=== PATIENT | female | born 1945 | race Caucasian/White ===

== ENCOUNTER 2016-08-16 16:01 | Emergency (ER) | payer BC, MEDICARE ==
[~2016-08-16] VITALS: Ht 152.4 cm; Wt 77.3 kg
[~2016-08-16 16:01] MED LIST: ALEVE 220MG220 MG PO; ASPIRIN 81M81 MG/TA2 PO; CEFTIN500 MG PO; CENTRUM SILVER1 TA1 PO; CLOTRIM ANTIFUNGAL1% TP; DIOVAN 40MG40 MG PO; DIOVAN 80MG80 MG PO; FIBER CHOICE1 CTB PO; FLAX OIL1000 MG PO; FORTAMET500 M1 PO; FOSAMAX 70MG TA70 MG PO; HCTZ 25MG TAB25 MG PO; LEVEMIR FLEX100 U/ML SQ; LEVEMIR100 U/ML SC; LISINOPRIL5 MG PO; MACROBID 1100 MG/CAP PO; METFORMIN500 MG PO; MIRALAX119G PO; MS CONTIN 330 MG/TAB PO; NORCO 325 MG-51 TAB PO; NOVOLOG FLEX100 U/ML SC; NOVOLOG FLEX100 U/ML SQ; PROBIOTIC-MAJOR PO; ROXICODONE 55 MG/TAB PO; SIMVASTATIN40 MG PO; STOOL SOFTENER100 M2 PO; TRAVATAN Z 5 ML5 ML OS; TYLENOL 325MG325 MG PO; TYLENOL 500MG500 MG PO; TYLENOL W/COD1 UDTAB PO; VITAMIN D 1001000 IU PO; VITAMIN D31000 IU; ZOCOR 40MG40 MG PO; ZOFRAN 4MG T4 MG/TAB PO; ZOLOFT 50MG50 MG PO
[2016-08-16 16:14] VITALS: BP 110/68; TEMP 98.8
[2016-08-16 17:33] LABS: ADJUSTED CALCIUM 9.9 mg/dL (8.4-10.2); ALBUMIN 3.7 gm/dL (3.5-5.0); BILIRUBIN,TOTAL 0.8 mg/dL (0.0-1.0); C-REACTIVE PROTEIN 4.7 mg/dL (0.0-0.9); CALCIUM 9.7 mg/dL (8.4-10.2); CREATININE, serum 1.12 mg/dL (0.52-1.25); POTASSIUM 4.3 mmol/L (3.4-5.0); TOTAL PROTEIN 7.6 gm/dL (6.4-8.2)
[2016-08-16 17:40] LABS: PH 5 (5-8); SQUAMOUS EPITHELIAL 0-2 /hpf; URINE APPEARANCE Hazy; URINE BACTERIA Moderate /hpf; URINE BILIRUBIN Negative (NEGATIVE); URINE BLOOD 3+ (NEGATIVE); URINE COLOR Amber; URINE GLUCOSE 1+ (NEGATIVE); URINE KETONE Trace (NEGATIVE); URINE RBC >50 /hpf; URINE WBC 0-2 /hpf
[2016-08-16 18:18] LABS: BASO % 0.5 % (0.0-2.0); EOS % 0.5 % (0-4.0); GRAN # 5.6 (1.4-6.5); GRAN % 71.4 % (42.2-75.2); LYMPH # 1.5 (1.2-3.4); LYMPH % 18.4 % (20.0-51.0); MEAN CELL VOLUME 95 fl (80.0-100.0); MEAN CORPUSCULAR HGB CONC 32 g/dl (33.0-37.0); MEAN PLATELET VOLUME 9.4 fl (7.4-10.4); MONO # 0.7 (0.1-0.6); MONO % 8.7 % (1.7-9.3); PLATELET COUNT 238 K/mm3 (130-400); RED BLOOD COUNT 3.45 M/mm3 (4.10-5.30); REDCELL DISTRIBUTION WIDTH-CV 18.8 % (11.5-14.5); WHITE BLOOD COUNT 7.9 K/mm3 (4.8-10.8)
[2016-08-16 18:19] LABS: HEMATOCRIT 32.8 % (37.0-47.0); HEMOGLOBIN 10.6 g/dl (12.5-16.0); MEAN CORPUSCULAR HEMOGLOBIN 31 pg (27.0-31.0)
[2016-08-16 19:19] VITALS: PULSE 97
[2017-02-28] MEDS ORDERED: TYLENOL 325MG325 MG PO (08:24)
== END 2016-08-16 19:21 | disposition home or self-care (01) ==
LOC: COL.ER 16:01
PROVIDERS: Emergency Medicine
DX: R53.1 Weakness (principal); E11.9 Type 2 diabetes mellitus without complications; Z79.4 Long term (current) use of insulin; R32 Unspecified urinary incontinence; R15.9 Full incontinence of feces; R21 Rash and other nonspecific skin eruption; C21.0 Malignant neoplasm of anus, unspecified
CPT/HCPCS: J7030

== ENCOUNTER 2016-08-24 11:23 | Inpatient (IN) | payer BC, MEDICARE ==
[~2016-08-24] VITALS: Ht 152.4 cm; Wt 75.5 kg
[2016-08-24 12:12] LABS: BASO % 0.3 % (0.0-2.0); EOS % 0.2 % (0-4.0); GRAN # 10.8 (1.4-6.5); GRAN % 89.9 % (42.2-75.2); LYMPH # 0.5 (1.2-3.4); MEAN CELL VOLUME 94 fl (80.0-100.0); MEAN CORPUSCULAR HEMOGLOBIN 31 pg (27.0-31.0); MEAN CORPUSCULAR HGB CONC 33 g/dl (33.0-37.0); MEAN PLATELET VOLUME 9.2 fl (7.4-10.4); MONO # 0.6 (0.1-0.6); MONO % 5.2 % (1.7-9.3); PLATELET COUNT 259 K/mm3 (130-400); RED BLOOD COUNT 3.94 M/mm3 (4.10-5.30); REDCELL DISTRIBUTION WIDTH-CV 17.7 % (11.5-14.5)
[2016-08-24 12:14] LABS: HEMATOCRIT 36.9 % (37.0-47.0)
[2016-08-24 12:15] LABS: PH 5 (5-8); SQUAMOUS EPITHELIAL 0-2 /hpf; URINE APPEARANCE Hazy; URINE BACTERIA None Seen /hpf; URINE BILIRUBIN Negative (NEGATIVE); URINE BLOOD 2+ (NEGATIVE); URINE COLOR Amber; URINE GLUCOSE Negative (NEGATIVE); URINE KETONE Negative (NEGATIVE); URINE RBC 20-50 /hpf; URINE WBC 0-2 /hpf
[2016-08-24 12:20] LABS: INR 1.1 (0.8-3.0); PROTHROMBIN TIME 12.6 SECONDS (9.7-12.8)
[2016-08-24 12:29] LABS: ALANINE AMINOTRANSFERASE 33 U/L (9-52); ALBUMIN 3.9 gm/dL (3.5-5.0); ALKALINE PHOSPHATASE 94 U/L (50-136); ANION GAP 15 mmol/L (7-16); BILIRUBIN,TOTAL 0.7 mg/dL (0.0-1.0); BLOOD UREA NITROGEN 29 mg/dL (7-17); CALCIUM 9.9 mg/dL (8.4-10.2); CARBON DIOXIDE 25 mmol/L (22-30); CHLORIDE 96 mmol/L (98-107); CREATINE KINASE 149 U/L (30-135); GLUCOSE 117 mg/dL (74-106); POTASSIUM 4.7 mmol/L (3.4-5.0); SODIUM 137 mmol/L (137-145); TOTAL PROTEIN 7.8 gm/dL (6.4-8.2)
[2016-08-24 12:39] LABS: B-TYPE NATRIURETIC PEPTIDE 448 pg/mL (0-125)
[2016-08-24 12:41] LABS: TROPONIN-I < 0.012 ng/mL (0.000-0.034)
[2016-08-24] MEDS ORDERED: COLACE 100100 MG/CAP PO (13:22)
[2016-08-24 14:47] VITALS: BP 104/55; PULSE 101; TEMP 98.4
[2016-08-24 16:35] VITALS: BP 128/69; PULSE 98; TEMP 97.7
[2016-08-24 19:35] VITALS: BP 105/55; PULSE 96; TEMP 98.1
[2016-08-24 23:37] VITALS: BP 118/57; PULSE 96; TEMP 98.6
[2016-08-25 04:36] VITALS: BP 93/52; PULSE 89; TEMP 98.5
[2016-08-25 08:19] LABS: BASO % 0.4 % (0.0-2.0); EOS # 0.1 (0.0-0.7); EOS % 1.1 % (0-4.0); GRAN # 8.2 (1.4-6.5); GRAN % 79.2 % (42.2-75.2); LYMPH # 1.2 (1.2-3.4); LYMPH % 11.3 % (20.0-51.0); MEAN CELL VOLUME 95 fl (80.0-100.0); MEAN CORPUSCULAR HGB CONC 32 g/dl (33.0-37.0); MEAN PLATELET VOLUME 9.2 fl (7.4-10.4); MONO # 0.8 (0.1-0.6); MONO % 7.6 % (1.7-9.3); PLATELET COUNT 231 K/mm3 (130-400); REDCELL DISTRIBUTION WIDTH-CV 17.6 % (11.5-14.5); WHITE BLOOD COUNT 10.4 K/mm3 (4.8-10.8)
[2016-08-25 08:30] LABS: HEMATOCRIT 33.3 % (37.0-47.0); HEMOGLOBIN 10.7 g/dl (12.5-16.0); MEAN CORPUSCULAR HEMOGLOBIN 31 pg (27.0-31.0)
[2016-08-25 08:32] LABS: CALCIUM 8.7 mg/dL (8.4-10.2); CREATININE, serum 0.9 mg/dL (0.52-1.25); POTASSIUM 4.5 mmol/L (3.4-5.0)
[2016-08-25 09:02] VITALS: BP 127/69; PULSE 95; TEMP 97.5
[2016-08-25 12:14] VITALS: BP 149/66; PULSE 100; TEMP 98.1
[2016-08-25 14:52] LABS: AMPHETAMINE URINE NEGATIVE; BARBITURATES URINE NEGATIVE; BENZODIAZEPINES URINE NEGATIVE; BUPRENORPHINE URINE NEGATIVE; METHADONE URINE NEGATIVE; OPIATES URINE POSITIVE; OXYCODONE URINE POSITIVE; PHENCYCLIDINE URINE NEGATIVE; PROPOXYPHENE URINE NEGATIVE; THC CANNABINOIDS URINE NEGATIVE
[2016-08-25 16:30] VITALS: BP 120/88; PULSE 101; TEMP 99
[2016-08-25 19:49] VITALS: BP 118/49; PULSE 93; TEMP 98.2
[2016-08-25 23:43] VITALS: BP 91/42; PULSE 76; TEMP 98.1
[2016-08-26 03:48] VITALS: BP 132/70; PULSE 92; TEMP 97.7
[2016-08-26 07:35] VITALS: BP 122/61; PULSE 80; TEMP 98.8
[2016-08-26] MEDS ORDERED: SEROQUEL 2525 MG/TAB PO (09:16)
[2016-08-26] MEDS ORDERED: ANUSOL-HC2.5% TOP (09:18)
[2016-08-26] MEDS ORDERED: MS CONTIN 330 MG/TAB PO (09:18)
[2016-08-26] MEDS ORDERED: ROXICODONE 55 MG/TAB PO (09:18)
[2016-08-26 11:36] VITALS: BP 122/61; PULSE 80; TEMP 98.8
[2016-08-26 11:41] VITALS: BP 127/66; PULSE 107; TEMP 97.4
[2016-08-26] MEDS ORDERED: NOVOLOG FLEX100 U/ML SQ (13:57)
[2017-02-28] MEDS ORDERED: TYLENOL 325MG325 MG PO (08:24)
== END 2016-08-26 15:45 | DRG 683 ==
LOC: COL.ER 11:23 → MEDICAL 13:11
PROVIDERS: Emergency Medicine; Family Medicine
DX: N17.9 Acute kidney failure, unspecified (principal); E87.2 Acidosis; C21.8 Malignant neoplasm of overlapping sites of rectum, anus and anal canal; E86.0 Dehydration; E11.9 Type 2 diabetes mellitus without complications; E78.5 Hyperlipidemia, unspecified; R62.7 Adult failure to thrive; R53.81 Other malaise; Z79.4 Long term (current) use of insulin
CPT/HCPCS: 99222-AI; 99232-AI; 99239; J1650; J1815; J7030

== ENCOUNTER → 2016-09-03 | Outpatient (REF) ==
[~2016-09-03] MED LIST changes: +ANTIVERT 25MG25 MG PO; +ANUSOL-HC2.5% TOP; +BACTRIM DS 8001 TAB PO; +COLACE 100100 MG/CAP PO; +MIRALAX PA17 GM/Dose PO; +PROBIOTIC-SUNMARK PO; +SENOKOT S 50 MG1 TAB PO; +SEROQUEL 2525 MG/TAB PO; +SINEMET 25/101 UDTAB PO; +VALIUM 2MG T2 MG/TAB PO; +ZOFRAN8 MG PO; +ZOLOFT 100MG100 MG PO
== END ==
LOC: ZCOL.LAB 17:04
DX: E06.5 Other chronic thyroiditis (principal); D51.8 Other vitamin B12 deficiency anemias

== ENCOUNTER → 2016-09-12 | Outpatient (CLI) | payer BC, MEDICARE ==
[2016-09-12 16:24] LABS: BASO % 0.3 % (0.0-2.0); EOS # 0.1 (0.0-0.7); EOS % 0.9 % (0-4.0); GRAN # 7.4 (1.4-6.5); GRAN % 76.2 % (42.2-75.2); HEMATOCRIT 38.1 % (37.0-47.0); HEMOGLOBIN 12.4 g/dl (12.5-16.0); LYMPH # 1.6 (1.2-3.4); LYMPH % 16.2 % (20.0-51.0); MEAN CELL VOLUME 94 fl (80.0-100.0); MEAN CORPUSCULAR HEMOGLOBIN 31 pg (27.0-31.0); MEAN CORPUSCULAR HGB CONC 33 g/dl (33.0-37.0); MEAN PLATELET VOLUME 9.6 fl (7.4-10.4); MONO # 0.6 (0.1-0.6); MONO % 6.1 % (1.7-9.3); PLATELET COUNT 256 K/mm3 (130-400); RED BLOOD COUNT 4.05 M/mm3 (4.10-5.30); REDCELL DISTRIBUTION WIDTH-CV 15.9 % (11.5-14.5); WHITE BLOOD COUNT 9.7 K/mm3 (4.8-10.8)
[2016-09-12 16:25] LABS: ADJUSTED CALCIUM 9.9 mg/dL (8.4-10.2); ALBUMIN 3.5 gm/dL (3.5-5.0); BILIRUBIN,TOTAL 0.7 mg/dL (0.0-1.0); CALCIUM 9.5 mg/dL (8.4-10.2); CREATININE, serum 0.93 mg/dL (0.52-1.25); POTASSIUM 4.3 mmol/L (3.4-5.0); TOTAL PROTEIN 6.8 gm/dL (6.4-8.2)
== END ==
LOC: ZCOL.LAB 16:01
PROVIDERS: Family Medicine
DX: E11.9 Type 2 diabetes mellitus without complications (principal); C21.1 Malignant neoplasm of anal canal

== ENCOUNTER → 2016-09-21 | Outpatient (CLI) | payer BC, MEDICARE | LOC: ZCOL.LAB 18:30 | DX: E11.9 Type 2 diabetes mellitus without complications (principal) ==

== ENCOUNTER 2016-10-24 06:43 | Inpatient (IN) | payer BC, MEDICARE ==
[~2016-10-24] VITALS: Ht 152.4 cm; Wt 75.4 kg
[2016-10-24] VITALS (392 sets, daily range): BP systolic 112–124; BP diastolic 59–82; PULSE 82–99; TEMP 97.8–98.7; O2SAT 56–100
[~2016-10-24 06:43] MED LIST changes: -ANTIVERT 25MG25 MG PO; -BACTRIM DS 8001 TAB PO; -MIRALAX PA17 GM/Dose PO; -PROBIOTIC-SUNMARK PO; -SENOKOT S 50 MG1 TAB PO; -SINEMET 25/101 UDTAB PO; -VALIUM 2MG T2 MG/TAB PO; -ZOFRAN8 MG PO; -ZOLOFT 100MG100 MG PO
[2016-10-24 07:10] LABS: ARTERIAL BLD GAS O2 SATURATION 96.8 % (92-100); ARTERIAL BLD GAS TCO2 CT 29.9; ARTERIAL BLOOD GAS BASE EXCESS 3.3 (-2-2); ARTERIAL BLOOD GAS HCO3 28.4 meq/L (22-26); ARTERIAL BLOOD GAS PHT 7.41 C (7.35-7.45); ARTERIAL BLOOD GAS PO2 95.6 mmHg (80-100); ARTERIAL BLOOD GAS PO2T 95.6 (80-100); ARTERIAL BLOOD GAS pH 7.41 (7.35-7.45); OXYHEMOGLOBIN 95.9 %
[2016-10-24 07:11] LABS: ALLEN TEST YES; ATS? YES
[2016-10-24 07:12] LABS: ALLENS TEST RESULT PASS
[2016-10-24 07:22] LABS: BASO % 0.3 % (0.0-2.0); GRAN # 9.4 (1.4-6.5); GRAN % 85.7 % (42.2-75.2); LYMPH # 0.9 (1.2-3.4); MEAN CELL VOLUME 93 fl (80.0-100.0); MEAN CORPUSCULAR HGB CONC 32 g/dl (33.0-37.0); MEAN PLATELET VOLUME 10.1 fl (7.4-10.4); MONO # 0.6 (0.1-0.6); MONO % 5.5 % (1.7-9.3); PLATELET COUNT 155 K/mm3 (130-400); RED BLOOD COUNT 3.78 M/mm3 (4.10-5.30)
[2016-10-24 07:44] LABS: HEMOGLOBIN 11.3 g/dl (12.5-16.0); MEAN CORPUSCULAR HEMOGLOBIN 30 pg (27.0-31.0)
[2016-10-24] MEDS ORDERED: ZOLOFT 100MG100 MG PO (07:52)
[2016-10-24] MEDS ORDERED: MIRALAX PA17 GM/Dose PO (07:54)
[2016-10-24 07:55] LABS: PH 5 (5-8); SQUAMOUS EPITHELIAL 0-2 /hpf; URINE APPEARANCE Cloudy; URINE BACTERIA Many /hpf; URINE BILIRUBIN Negative (NEGATIVE); URINE BLOOD 3+ (NEGATIVE); URINE COLOR Yellow; URINE GLUCOSE Negative (NEGATIVE); URINE KETONE Trace (NEGATIVE); URINE RBC >50 /hpf; URINE UROBILINOGEN Negative (NEGATIVE); URINE WBC >50 /hpf
[2016-10-24] MEDS ORDERED: PROBIOTIC-SUNMARK PO (07:55)
[2016-10-24] MEDS ORDERED: LEVEMIR FLEX100 U/ML SQ (07:57)
[2016-10-24] MEDS ORDERED: SINEMET 25/101 UDTAB PO (07:58)
[2016-10-24] MEDS ORDERED: SEROQUEL 2525 MG/TAB PO (07:58)
[2016-10-24] MEDS ORDERED: FOSAMAX 70MG TA70 MG PO (08:02)
[2016-10-24] MEDS ORDERED: SENOKOT S 50 MG1 TAB PO (08:03)
[2016-10-24] MEDS ORDERED: ROXICODONE 55 MG/TAB PO (08:04)
[2016-10-24 08:05] LABS: BILIRUBIN,TOTAL 0.8 mg/dL (0.0-1.0); CALCIUM 9.2 mg/dL (8.4-10.2); CREATININE, serum 1.28 mg/dL (0.52-1.25); POTASSIUM 4.1 mmol/L (3.4-5.0); TOTAL PROTEIN 5.8 gm/dL (6.4-8.2)
[2016-10-24 08:49] LABS: C-REACTIVE PROTEIN 13.8 mg/dL (0.0-0.9)
[2016-10-25] VITALS (219 sets, daily range): BP systolic 104–122; BP diastolic 58–77; PULSE 74–88; TEMP 97.2–98.2; O2SAT 84–100
[2016-10-25 06:18] LABS: BASO % 0.4 % (0.0-2.0); EOS # 0.1 (0.0-0.7); EOS % 1.5 % (0-4.0); GRAN # 5.1 (1.4-6.5); GRAN % 74.2 % (42.2-75.2); LYMPH # 1.2 (1.2-3.4); LYMPH % 16.9 % (20.0-51.0); MEAN CELL VOLUME 94 fl (80.0-100.0); MEAN CORPUSCULAR HGB CONC 32 g/dl (33.0-37.0); MEAN PLATELET VOLUME 10.1 fl (7.4-10.4); MONO # 0.5 (0.1-0.6); MONO % 6.7 % (1.7-9.3); PLATELET COUNT 152 K/mm3 (130-400); REDCELL DISTRIBUTION WIDTH-CV 14.1 % (11.5-14.5); WHITE BLOOD COUNT 6.8 K/mm3 (4.8-10.8)
[2016-10-25 06:27] LABS: CALCIUM 8.8 mg/dL (8.4-10.2); CREATININE, serum 0.82 mg/dL (0.52-1.25); POTASSIUM 3.5 mmol/L (3.4-5.0)
[2016-10-25 06:38] LABS: HEMATOCRIT 36.6 % (37.0-47.0); HEMOGLOBIN 11.7 g/dl (12.5-16.0); MEAN CORPUSCULAR HEMOGLOBIN 30 pg (27.0-31.0)
[2016-10-26 00:30] VITALS: BP 111/68; PULSE 95; TEMP 97.7
[2016-10-26 04:56] VITALS: BP 138/69; PULSE 82; TEMP 98.2
[2016-10-26 07:48] VITALS: BP 134/67; PULSE 88; TEMP 98
[2016-10-26 10:54] LABS: ADJUSTED CALCIUM 9.7 mg/dL (8.4-10.2); ALBUMIN 3.1 gm/dL (3.5-5.0); BILIRUBIN,TOTAL 0.5 mg/dL (0.0-1.0); CREATININE, serum 0.73 mg/dL (0.52-1.25); POTASSIUM 3.4 mmol/L (3.4-5.0); TOTAL PROTEIN 6.1 gm/dL (6.4-8.2)
[2016-10-26 11:51] VITALS: BP 136/74; PULSE 86; TEMP 98.7
[2016-10-26] MEDS ORDERED: BACTRIM DS 8001 TAB PO (12:06)
[2017-02-28] MEDS ORDERED: TYLENOL 325MG325 MG PO (08:24)
== END 2016-10-26 12:51 | disposition home or self-care (01) | DRG 918 ==
LOC: COL.ER 06:43 → ICU 08:21 → MEDICAL 10-25 12:10
PROVIDERS: Family Medicine; Internal Medicine
DX: T40.2X1A Poisoning by other opioids, accidental (unintentional), initial encounter (principal); C21.8 Malignant neoplasm of overlapping sites of rectum, anus and anal canal; N39.0 Urinary tract infection, site not specified; E44.0 Moderate protein-calorie malnutrition; R41.0 Disorientation, unspecified; B96.20 Unspecified Escherichia coli [E. coli] as the cause of diseases classified elsewhere; E11.9 Type 2 diabetes mellitus without complications; Z79.4 Long term (current) use of insulin
CPT/HCPCS: 99232-AI; 99239; J0696; J1815; J7030

== ENCOUNTER 2017-01-27 18:55 | Emergency (ER) | payer BC, MEDICARE ==
[~2017-01-27] VITALS: Ht 152.4 cm; Wt 75.5 kg
[~2017-01-27 18:55] MED LIST changes: +BACTRIM DS 8001 TAB PO; +MIRALAX PA17 GM/Dose PO; +PROBIOTIC-SUNMARK PO; +SENOKOT S 50 MG1 TAB PO; +SINEMET 25/101 UDTAB PO; +ZOLOFT 100MG100 MG PO
[2017-01-27 19:08] VITALS: BP 171/77; TEMP 98
[2017-01-27] MEDS ORDERED: ANTIVERT 25MG25 MG PO (20:46)
[2017-01-27] MEDS ORDERED: VALIUM 2MG T2 MG/TAB PO (20:46)
[2017-01-27 20:58] LABS: HEMATOCRIT 36.2 % (37.0-47.0); HEMOGLOBIN 11.8 g/dl (12.5-16.0)
[2017-01-27 21:14] LABS: ANION GAP 10 mmol/L (7-16); BLOOD UREA NITROGEN 26 mg/dL (7-17); CALCIUM 9.7 mg/dL (8.4-10.2); CARBON DIOXIDE 28 mmol/L (22-30); CHLORIDE 98 mmol/L (98-107); CREATININE, serum 0.89 mg/dL (0.52-1.25); GLUCOSE 202 mg/dL (74-106); POTASSIUM 4.3 mmol/L (3.4-5.0); SODIUM 137 mmol/L (137-145)
[2017-01-27 21:25] LABS: TROPONIN-I < 0.012 ng/mL (0.000-0.034)
[2017-01-27] MEDS ORDERED: ZOFRAN8 MG PO (22:03)
[2017-01-27 22:05] VITALS: PULSE 92
[2017-02-28] MEDS ORDERED: TYLENOL 325MG325 MG PO (08:24)
== END 2017-01-27 22:05 | disposition home or self-care (01) ==
LOC: COL.ER 18:55
PROVIDERS: Emergency Medicine
DX: H81.399 Other peripheral vertigo, unspecified ear (principal); E11.9 Type 2 diabetes mellitus without complications; Z79.4 Long term (current) use of insulin; I10 Essential (primary) hypertension

== ENCOUNTER 2017-03-03 09:04 | Outpatient (CLI) | payer BC, MEDICARE ==
[~2017-03-03] VITALS: Ht 152.4 cm; Wt 72.7 kg
[2017-03-03] VITALS (13 sets, daily range): BP systolic 106–147; BP diastolic 47–97; PULSE 80–85
[~2017-03-03 09:04] MED LIST changes: +ANTIVERT 25MG25 MG PO; +VALIUM 2MG T2 MG/TAB PO; +ZOFRAN8 MG PO
== END 2017-03-03 15:47 | disposition home or self-care (01) ==
LOC: COL.RAD 09:04
DX: R91.8 Other nonspecific abnormal finding of lung field (principal); Z85.048 Personal history of other malignant neoplasm of rectum, rectosigmoid junction, and anus; I10 Essential (primary) hypertension
CPT/HCPCS: 27584

== ENCOUNTER 2017-04-26 12:30 | Emergency (ER) | payer BC, MEDICARE ==
[~2017-04-26] VITALS: Ht 152.4 cm; Wt 72.7 kg
[2017-04-26 12:39] VITALS: TEMP 98.4
[2017-04-26] MEDS ORDERED: ZOLOFT 100MG100 MG PO (13:03)
[2017-04-26 14:53] VITALS: BP 155/72; PULSE 82
== END 2017-04-26 14:53 | disposition home or self-care (01) ==
LOC: COL.ER 12:30
DX: S20.211A Contusion of right front wall of thorax, initial encounter (principal); S70.11XA Contusion of right thigh, initial encounter; W01.10XA Fall on same level from slipping, tripping and stumbling with subsequent striking against unspecified object, initial encounter; C34.92 Malignant neoplasm of unspecified part of left bronchus or lung; Z92.3 Personal history of irradiation; Z79.4 Long term (current) use of insulin

== ENCOUNTER 2018-01-23 09:30 | Emergency (ER) | payer MEDICARE ==
[~2018-01-23] VITALS: Ht 152.4 cm; Wt 75.0 kg
[~2018-01-23 09:30] MED LIST changes: +OMNICEF 300MG300 MG PO
[2018-01-23 09:33] VITALS: TEMP 98.1
[2018-01-23 10:08] LABS: BASO % 0.8 % (0.0-2.0); EOS # 0.2 (0.0-0.7); EOS % 3.4 % (0-4.0); GRAN # 3.2 (1.4-6.5); HEMATOCRIT 38.1 % (37.0-47.0); HEMOGLOBIN 12.3 g/dl (12.5-16.0); LYMPH % 20.5 % (20.0-51.0); MEAN CELL VOLUME 93 fl (80.0-100.0); MEAN CORPUSCULAR HEMOGLOBIN 30 pg (27.0-31.0); MEAN CORPUSCULAR HGB CONC 32 g/dl (33.0-37.0); MONO # 0.4 (0.1-0.6); MONO % 7.5 % (1.7-9.3); PLATELET COUNT 178 K/mm3 (130-400); RED BLOOD COUNT 4.12 M/mm3 (4.10-5.30); REDCELL DISTRIBUTION WIDTH-CV 13.4 % (11.5-14.5)
[2018-01-23] MEDS ORDERED: ZOCOR 40MG40 MG PO (10:16)
[2018-01-23] MEDS ORDERED: ZOLOFT 100MG100 MG PO (10:17)
[2018-01-23] MEDS ORDERED: PARCOPA 25/101 UDTAB PO (10:17)
[2018-01-23 10:19] LABS: ALANINE AMINOTRANSFERASE 12 U/L (9-52); ALBUMIN 3.9 gm/dL (3.5-5.0); ALKALINE PHOSPHATASE 87 U/L (50-136); ANION GAP 9 mmol/L (7-16); AST,SGOT 20 U/L (15-37); BILIRUBIN,TOTAL 0.4 mg/dL (0.0-1.0); BLOOD UREA NITROGEN 23 mg/dL (7-17); CARBON DIOXIDE 26 mmol/L (22-30); CHLORIDE 100 mmol/L (98-107); GLUCOSE 281 mg/dL (74-106); LIPASE 41 U/L (23-300); POTASSIUM 4.3 mmol/L (3.4-5.0); SODIUM 135 mmol/L (137-145); TOTAL PROTEIN 7.4 gm/dL (6.4-8.2)
[2018-01-23 10:30] LABS: TROPONIN-I < 0.012 ng/mL (0.000-0.034)
[2018-01-23 10:58] LABS: COLLECTION METHOD CLEAN CATCH
[2018-01-23 11:05] LABS: MUCOUS Present /lpf; PH 5 (5-8); URINE APPEARANCE Clear; URINE BACTERIA None Seen /hpf; URINE BILIRUBIN Negative (NEGATIVE); URINE BLOOD Negative (NEGATIVE); URINE COLOR Yellow; URINE GLUCOSE 3+ (NEGATIVE); URINE KETONE Negative (NEGATIVE); URINE LEUKOCYTE ESTERASE Negative (NEGATIVE); URINE NITRATE Negative (NEGATIVE); URINE PROTEIN(semi-quant) 1+ (NEGATIVE); URINE RBC 0-2 /hpf; URINE UROBILINOGEN Negative (NEGATIVE)
[2018-01-23 13:21] VITALS: BP 127/70; PULSE 86
== END 2018-01-23 13:22 | disposition home or self-care (01) ==
LOC: COL.ER 09:30
PROVIDERS: Emergency Medicine
DX: S09.90XA Unspecified injury of head, initial encounter (principal); S20.211A Contusion of right front wall of thorax, initial encounter; E86.0 Dehydration; G20 Parkinson's disease; E11.9 Type 2 diabetes mellitus without complications; W18.09XA Striking against other object with subsequent fall, initial encounter; Y92.410 Unspecified street and highway as the place of occurrence of the external cause
CPT/HCPCS: J7030; J7040; Q9967

== ENCOUNTER → 2018-03-19 | Outpatient (CLI) | payer MEDICARE ==
[~2018-03-19] MED LIST changes: +PARCOPA 25/101 UDTAB PO
== END ==
LOC: COL.RAD 11:02
DX: D01.3 Carcinoma in situ of anus and anal canal (principal); S22.060A Wedge compression fracture of T7-T8 vertebra, initial encounter for closed fracture; S32.10XA Unspecified fracture of sacrum, initial encounter for closed fracture; S32.2XXA Fracture of coccyx, initial encounter for closed fracture

== ENCOUNTER 2018-04-05 21:46 | Emergency (ER) | payer MEDICARE ==
[~2018-04-05] VITALS: Ht 152.4 cm; Wt 77.3 kg
[2018-04-05] MEDS ORDERED: INSLANT SQ (22:16)
[2018-04-05 23:37] VITALS: BP 130/72; PULSE 95; TEMP 99
== END 2018-04-05 23:37 | disposition home or self-care (01) ==
LOC: COL.ER 21:46
DX: S43.402A Unspecified sprain of left shoulder joint, initial encounter (principal); E78.00 Pure hypercholesterolemia, unspecified; G20 Parkinson's disease; Z79.4 Long term (current) use of insulin; W19.XXXA Unspecified fall, initial encounter

== ENCOUNTER 2018-07-10 08:07 | Day surgery (SDC) | payer MEDICARE, OTHER ==
[~2018-07-10] VITALS: Ht 152.4 cm; Wt 87.2 kg
[~2018-07-10 08:07] MED LIST changes: +INSLANT SQ
[2018-07-10 08:57] VITALS: BP 96/75; PULSE 76; TEMP 97.7
[2018-07-10] MEDS ORDERED: ACTOS30 MG PO (09:09)
[2018-07-10] MEDS ORDERED: SINEMET 25/101 UDTAB PO (09:10)
[2018-07-10] MEDS ORDERED: ZOCOR 40MG40 MG PO (09:11)
[2018-07-10] MEDS ORDERED: TYLENOL 500MG500 MG PO (09:11)
[2018-07-10] MEDS ORDERED: VITAMIND3 5000 PO (09:13)
[2018-07-10] MEDS ORDERED: QUESTRAN LI4 GM/5 GM PO (10:29)
[2018-07-10 10:30] VITALS: BP 119/66; PULSE 90; TEMP 98.2
[2018-07-10 10:45] VITALS: BP 162/88; PULSE 87
== END 2018-07-10 11:42 | disposition home or self-care (01) ==
LOC: SDCO 08:07
DX: Z86.010 Personal history of colon polyps (principal); D12.0 Benign neoplasm of cecum; D12.4 Benign neoplasm of descending colon; D12.3 Benign neoplasm of transverse colon; Z85.048 Personal history of other malignant neoplasm of rectum, rectosigmoid junction, and anus; Z85.118 Personal history of other malignant neoplasm of bronchus and lung; Z92.3 Personal history of irradiation; Z92.21 Personal history of antineoplastic chemotherapy; E11.9 Type 2 diabetes mellitus without complications; Z79.4 Long term (current) use of insulin; E78.5 Hyperlipidemia, unspecified; G20 Parkinson's disease; Z79.899 Other long term (current) drug therapy
CPT/HCPCS: J2250; J3010; J7030

== ENCOUNTER → 2019-02-27 | Outpatient (CLI) | payer MEDICARE ==
[~2019-02-27] VITALS: Ht 151.1 cm; Wt 94.1 kg
[~2019-02-27] MED LIST changes: +ACTOS30 MG PO; +QUESTRAN LI4 GM/5 GM PO; +VITAMIND3 5000 PO
[2019-02-27 10:36] VITALS: BP 92/56; PULSE 80
[2019-03-04 10:39] VITALS: BP 110/64; PULSE 80
== END ==
LOC: LIGHT 09:54
DX: E88.81 Metabolic syndrome and other insulin resistance (principal); E10.9 Type 1 diabetes mellitus without complications; I10 Essential (primary) hypertension; E66.01 Morbid (severe) obesity due to excess calories; Z68.41 Body mass index [BMI] 40.0-44.9, adult; Z71.3 Dietary counseling and surveillance
CPT/HCPCS: G0463

== ENCOUNTER → 2019-03-07 | Outpatient (CLI) | payer MEDICARE | LOC: MC.RAD 09:07 | DX: Z12.31 Encounter for screening mammogram for malignant neoplasm of breast (principal) ==

== ENCOUNTER → 2019-03-13 | Outpatient (CLI) | payer MEDICARE | LOC: LIGHT 10:54 | DX: E88.81 Metabolic syndrome and other insulin resistance (principal); E10.9 Type 1 diabetes mellitus without complications; I10 Essential (primary) hypertension; E66.01 Morbid (severe) obesity due to excess calories; Z68.41 Body mass index [BMI] 40.0-44.9, adult; Z71.3 Dietary counseling and surveillance ==

== ENCOUNTER → 2019-03-26 | Outpatient (CLI) | payer MEDICARE ==
[~2019-03-26] VITALS: Ht 151.1 cm; Wt 93.0 kg
[2019-03-26 14:37] VITALS: BP 106/60; PULSE 84
== END ==
LOC: LIGHT 13:20
DX: E88.81 Metabolic syndrome and other insulin resistance (principal); E11.9 Type 2 diabetes mellitus without complications; E66.01 Morbid (severe) obesity due to excess calories; Z68.41 Body mass index [BMI] 40.0-44.9, adult; Z71.3 Dietary counseling and surveillance
CPT/HCPCS: G0463

== ENCOUNTER → 2019-04-01 | Outpatient (CLI) | payer MEDICARE ==
[~2019-04-01] VITALS: Ht 151.1 cm; Wt 92.5 kg
== END ==
LOC: LIGHT 13:20
DX: E88.81 Metabolic syndrome and other insulin resistance (principal); E11.69 Type 2 diabetes mellitus with other specified complication; E78.5 Hyperlipidemia, unspecified; Z68.41 Body mass index [BMI] 40.0-44.9, adult; Z71.3 Dietary counseling and surveillance

== ENCOUNTER → 2019-04-23 | Outpatient (CLI) | payer MEDICARE ==
[~2019-04-23] VITALS: Ht 151.1 cm; Wt 92.1 kg
[2019-04-23 14:19] VITALS: BP 110/70; PULSE 100
== END ==
LOC: LIGHT 13:49
DX: E88.81 Metabolic syndrome and other insulin resistance (principal); E11.9 Type 2 diabetes mellitus without complications; E78.5 Hyperlipidemia, unspecified; E66.01 Morbid (severe) obesity due to excess calories; Z68.41 Body mass index [BMI] 40.0-44.9, adult; Z71.3 Dietary counseling and surveillance
CPT/HCPCS: G0463

== ENCOUNTER 2019-05-06 14:32 | Outpatient (RCR) | payer MEDICARE | END 2019-08-04 | disposition still patient (30) | LOC: WSC | DX: G20 Parkinson's disease (principal) ==

== ENCOUNTER → 2019-05-28 | Outpatient (CLI) | payer MEDICARE ==
[2019-05-27 11:27] VITALS: BP 108/54; PULSE 84
[~2019-05-28] VITALS: Ht 151.1 cm; Wt 91.4 kg
== END ==
LOC: LIGHT 12:47
DX: E88.81 Metabolic syndrome and other insulin resistance (principal); E11.9 Type 2 diabetes mellitus without complications; E78.5 Hyperlipidemia, unspecified; E66.01 Morbid (severe) obesity due to excess calories; Z68.41 Body mass index [BMI] 40.0-44.9, adult; Z71.3 Dietary counseling and surveillance
CPT/HCPCS: G0463

== ENCOUNTER 2019-08-22 10:53 | Day surgery (SDC) | payer MEDICARE ==
[~2019-08-22] VITALS: Ht 152.4 cm; Wt 91.1 kg
[2019-08-22 11:42] VITALS: BP 101/85; PULSE 80; TEMP 98.4
[2019-08-22] MEDS ORDERED: VITAMIND3 5000 PO (11:55)
[2019-08-22] MEDS ORDERED: COLESTID 1GM1 G PO (11:56)
[2019-08-22] MEDS ORDERED: ADVIL LIQUI-GE200 MG PO (11:57)
[2019-08-22] MEDS ORDERED: ACTOS30 MG PO (11:59)
--- NOTE | 2019-08-22 12:01 | NUR ---
TO RM 3 , CALL LIGHT IN REACH AT BEDSIDE.
[2019-08-22 14:20] VITALS: BP 157/73; PULSE 81; TEMP 97.8
--- NOTE | 2019-08-22 14:20 | NUR ---
TO RM 3 PER CART FROM PACU. ALERT ORIENTED X 3, DROSWY AND FALLS BACK TO SLEEP AFTER ANSWERING QUESTIONS. AT BEDSIDE. DENIES PAIN OR DISCOMFORT, DENIES NAUSEA OR VOMITING.
[2019-08-22 14:35] VITALS: BP 158/80; PULSE 80
--- NOTE | 2019-08-22 14:35 | NUR ---
LITTLE MOREW AWAKE AND SITTING ON WATER.
[2019-08-22 15:00] VITALS: BP 122/73; PULSE 70
--- NOTE | 2019-08-22 15:00 | NUR ---
UP TO BEDSIDE COMMODE WITH ASSIST X2. VOIDED AND HAD A BOWEL MOVEMENT. PERICARE DONE AND PATIENT TRANSFERED TO CHAIR AT BEDSIDE. RECEIVED MUFFIN AND COFFEE.
--- NOTE | 2019-08-22 15:15 | NUR ---
BACK UP TO BEDSIDE COMMODE. VOIDED 2ND TIME. PATIENT ATE 100% AND TOLERATED WELL.
--- NOTE | 2019-08-22 15:20 | NUR ---
PATIENT TRANSFERED BACK TO BED PER REQUEST TO REST.
[2019-08-22 15:35] VITALS: BP 130/71; PULSE 76
--- NOTE | 2019-08-22 15:35 | NUR ---
DR HERNANDEZ CALLED FOR C/O PAIN . PATIENT RECEIVED TYL. ES 1 TAB
[2019-08-22 16:00] VITALS: BP 138/53; PULSE 76
--- NOTE | 2019-08-22 16:15 | NUR ---
PATIENT AND RECEIVED DISCHARGE INSTRUCTIONS AND VERBALIZED UNDERSTANDING. DISCONTINUED IV AND INT ASSISTING PATIENT DRESSED
--- NOTE | 2019-08-22 16:24 | NUR ---
UP TO BEDSIDE COMMODE WITH ASSIST
--- NOTE | 2019-08-22 16:26 | NUR ---
AMBULATED TO BATHROOM WITH ASSIST, WALKING WITH WALKER.
--- NOTE | 2019-08-22 16:37 | NUR ---
DISCHARGED PER WC BY NURSING STAFF TO PRIVATE CAR IN CARE OF SHREYARegina
== END 2019-08-22 16:41 | disposition home or self-care (01) ==
LOC: SDCO 10:53
DX: N20.0 Calculus of kidney (principal); E11.42 Type 2 diabetes mellitus with diabetic polyneuropathy; I10 Essential (primary) hypertension; E78.5 Hyperlipidemia, unspecified; G20 Parkinson's disease; E11.22 Type 2 diabetes mellitus with diabetic chronic kidney disease; N18.9 Chronic kidney disease, unspecified; Z85.828 Personal history of other malignant neoplasm of skin; Z88.6 Allergy status to analgesic agent; Z88.8 Allergy status to other drugs, medicaments and biological substances; Z88.5 Allergy status to narcotic agent; Z90.710 Acquired absence of both cervix and uterus; Z79.4 Long term (current) use of insulin; Z86.73 Personal history of transient ischemic attack (TIA), and cerebral infarction without residual deficits; Z92.21 Personal history of antineoplastic chemotherapy; Z92.3 Personal history of irradiation
CPT/HCPCS: C1769; C2617; J0690; J1100; J2405; J2704; J3010; J7120

== ENCOUNTER 2019-08-29 12:12 | Day surgery (SDC) | payer MEDICARE ==
[2019-08-29] VITALS (9 sets, daily range): BP systolic 118–145; BP diastolic 48–61; PULSE 76–114; TEMP 97.3–99
[~2019-08-29] VITALS: Ht 152.4 cm; Wt 89.5 kg
[~2019-08-29 12:12] MED LIST changes: +ADVIL LIQUI-GE200 MG PO; +COLESTID 1GM1 G PO
--- NOTE | 2019-08-29 15:00 | NUR ---
Pt taken via cart to OR for scheduled surgery with Dr Kyle. to waiting room.
--- NOTE | 2019-08-29 15:52 | NUR ---
Pts belongings taken to PACU-clothing, shoes and purse. informed that pt will be going to 3rd floor after surgery instead of discharging from outpatient surgery unit.
[2019-08-30] VITALS: BP 109/85; PULSE 100; TEMP 98.2
[2019-08-30 01:19] VITALS: BP 109/85; PULSE 101; TEMP 98.2
[2019-08-30 04:16] VITALS: BP 95/37; PULSE 90; TEMP 98.7
[2019-08-30 05:24] VITALS: BP 127/60
--- NOTE | 2019-08-30 06:07 | NUR ---
Patient came up from cystoscopy at shift change. NS bolus completed and fluids started per orders. Patient a max [facility] Noted to be slightly confused, stating she was at [facility] and she was admitted because of her parkinsons. Easily reoriented. Noted to be drowsy. Urine noted to be very bloody. Dr. Waller called and updated. He stated the surgery was difficult and to monitor her. Urine sample collected and sent to lab. 1st dose of Levaquin administered. Patient has slept well throughout the night. Will report off to day shift.
[2019-08-30 07:31] LABS: HEMOGLOBIN 10.5 g/dl (12.5-16.0); MEAN CELL VOLUME 97 fl (80.0-100.0); MEAN CORPUSCULAR HEMOGLOBIN 30 pg (27.0-31.0); MEAN CORPUSCULAR HGB CONC 31 g/dl (33.0-37.0); PLATELET COUNT 146 K/mm3 (130-400); REDCELL DISTRIBUTION WIDTH-CV 14.1 % (11.5-14.5)
[2019-08-30 07:34] LABS: HEMATOCRIT 33.8 % (37.0-47.0)
[2019-08-30 07:35] LABS: CALCIUM 8.8 mg/dL (8.4-10.2); CREATININE, serum 1.4 (0.52-1.25); POTASSIUM 4.5 mmol/L (3.4-5.0)
[2019-08-30 07:46] VITALS: BP 106/77; PULSE 85; TEMP 98
[2019-08-30 08:40] LABS: BAND 19 % (0-10); EOSINOPHIL 1 % (0-4); LYMPHOCYTE 4 % (20.0-51.0); NEUTROPHILS 72 % (42.0-75.2); PLATELET ESTIMATE NORMAL (NORMAL)
--- NOTE | 2019-08-30 09:08 | NUR ---
CONG met with the patient and her , Santhosh (ph#[phone]), to discuss discharge plan. The patient lives in [place] with her . She reports needing some assistance with bathing and has a cane and walker. She states that she has private duty services from [facility] and that they help her bathe twice a week, on Monday and . The patient's PCP is Dr. Sydney Kyle and she receives her medications by mail through [facility]. She reports no difficulties obtaining her meds. The patient does not have advanced directives in EMR, but she states that she does have them completed and that her is her DPOA-HC. She states that Dr. Kyle's office should have a copy. CONG contacted Dr. Kyle's office and requested a copy. CONG received the patient's DPOA-HC, via fax, from Dr. Kyle's office. CONG placed the copy in the patient's chart. The patient's DPOA-HC is her . The patient plans to return home with her upon discharge. No additional needs at this time.
--- NOTE | 2019-08-30 09:30 | NUR ---
Patient alert and oriented, answers questions appropriately. See assessment. No c/o urinary hesitancy. C/o urinary burning and frequency. No c/o flank or abdominal pain. Urine grossly bloody. No other c/o at this time.
[2019-08-30 12:00] VITALS: BP 122/58; PULSE 87; TEMP 98
--- NOTE | 2019-08-30 13:52 | NUR ---
Pt resting comfortably in bed. Pt up to ambulate to the bedside commode directly next to her bed. Pt tolerated well and was incontinent of bladder. Pt has no c/o pain or discomfort at this time. Report given to IONA Thorpe.
--- NOTE | 2019-08-30 16:29 | NUR ---
Discharge instructions reviewed with patient and spouse, verbalized understanding. Discharged via wheelchair to auto/home with spouse at 1615.
== END 2019-08-30 16:20 | disposition home or self-care (01) ==
LOC: SDCO 12:12 → SURG 18:14 → SDCO 08-30 16:20
PROVIDERS: Urology
DX: N20.0 Calculus of kidney (principal); E11.42 Type 2 diabetes mellitus with diabetic polyneuropathy; I10 Essential (primary) hypertension; E11.22 Type 2 diabetes mellitus with diabetic chronic kidney disease; N18.9 Chronic kidney disease, unspecified; G20 Parkinson's disease; Z85.828 Personal history of other malignant neoplasm of skin; Z88.5 Allergy status to narcotic agent; Z88.8 Allergy status to other drugs, medicaments and biological substances; Z88.6 Allergy status to analgesic agent; Z79.4 Long term (current) use of insulin; Z86.73 Personal history of transient ischemic attack (TIA), and cerebral infarction without residual deficits; Z87.440 Personal history of urinary (tract) infections
CPT/HCPCS: OP; C1769; C2617; J0690; J1956; J2405; J2704; J3010; J7030

== ENCOUNTER 2019-09-19 10:36 | Day surgery (SDC) | payer MEDICARE ==
[~2019-09-19] VITALS: Ht 152.4 cm; Wt 91.3 kg
[2019-09-19] VITALS (10 sets, daily range): BP systolic 110–149; BP diastolic 57–71; PULSE 72–83; TEMP 97.6–98.1
[2019-09-19] MEDS ORDERED: VITAMIN D 1001000 IU PO (11:52)
--- NOTE | 2019-09-19 11:56 | NUR ---
TO RM AT 1102- CALL LIGHT IN REACH AT BEDSIDE.
--- NOTE | 2019-09-19 12:15 | NUR ---
King KERR CRNA CALLED CONCERNING ACCUCHECK OF 66 PATIENT STATED BLOOD SUGAR WAS 90 THIS MORNING AT HOME.
--- NOTE | 2019-09-19 12:16 | NUR ---
RECEIVED BOLUS OF 200CC OF D5NS
--- NOTE | 2019-09-19 15:41 | NUR ---
Patient arrived to floor from PACU via bed. Patient is sleepy but rouses to verbal stimulus. Post op checks initiated. Patient denies needs at this time, call light within reach.
--- NOTE | 2019-09-19 20:00 | NUR ---
PATIENT ASSISTED TO BATHROOM, VOIDS 100CC OF BLOODY URINE. COMPLAINS OF MILD NAUSEA. GAIT UNSTEADY, USUALLY USES A WALKER FOR ASSISTANCE. HAS IVF TO LEFT AC INFUSING WITHOUT REDNESS OR SWELLING.
--- NOTE | 2019-09-19 22:28 | NUR ---
MEDICATED WITH HS MEDS INCLUDING PERCOCET 2 TABS FOR PAIN TO ABD. HAS SMALL AMT OF YELLOW EMESIS AT THIS TIME.
[2019-09-20 01:07] VITALS: BP 111/62; PULSE 87; TEMP 98.5
[2019-09-20 04:55] VITALS: BP 120/56; PULSE 86; TEMP 97.6
--- NOTE | 2019-09-20 05:05 | NUR ---
TAKES PERCOCET 1 TAB PO FOR ABD PAIN 10/31. CAPPED IVF AT THIS TIME.
--- NOTE | 2019-09-20 05:30 | NUR ---
ASSISTED TO BSC, VOIDS 300CC OF BLOOD TINGED URINE, WAS ALSO INCONTINENT OF URINE PRIOR TO GETTING UP. TRANSFERS FAIR. BACK TO BED WITH ONE ASSIST.
[2019-09-20 06:50] VITALS: BP 113/51; PULSE 86; TEMP 97.5
--- NOTE | 2019-09-20 08:00 | NUR ---
Patient resting in bed at this time. Patient has finished breakfast and denies nausea or pain at this time. Patient is alert and oriented, answers questions appropriately. Patient denies needs at this time, call light within reach.
--- NOTE | 2019-09-20 10:42 | NUR ---
Discharge teaching completed. Patient and present, discussed discharge instructions, follow up appointment, and indications of complications. INT removed, catheter intact, hemostasis achieved. Patient dressed with assistance and walked out to visitor entrance where she entered a private vehicle.
--- NOTE | 2019-09-20 11:15 | NUR ---
Initial visit; Patient and thanked Conduit Cleaner for looking in on her and wishing her well and offering God's blessings.
== END 2019-09-20 11:00 | disposition home or self-care (01) ==
LOC: SDCO 10:36 → SURG 16:06 → SDCO 09-20 11:00
DX: N20.2 Calculus of kidney with calculus of ureter (principal); E11.42 Type 2 diabetes mellitus with diabetic polyneuropathy; I10 Essential (primary) hypertension; G20 Parkinson's disease; Z85.048 Personal history of other malignant neoplasm of rectum, rectosigmoid junction, and anus; Z88.5 Allergy status to narcotic agent; Z88.6 Allergy status to analgesic agent; Z88.8 Allergy status to other drugs, medicaments and biological substances; Z86.73 Personal history of transient ischemic attack (TIA), and cerebral infarction without residual deficits; Z92.3 Personal history of irradiation; Z87.441 Personal history of nephrotic syndrome; Z92.21 Personal history of antineoplastic chemotherapy
CPT/HCPCS: OP; C1769; C2617; J0690; J1815; J2405; J2704; J3010; J7030; Q9967

== ENCOUNTER → 2019-10-01 | Outpatient (CLI) | payer MEDICARE | LOC: LIGHT 07-30 15:32 | DX: E88.81 Metabolic syndrome and other insulin resistance (principal); E11.9 Type 2 diabetes mellitus without complications; E78.5 Hyperlipidemia, unspecified; G20 Parkinson's disease | CPT/HCPCS: G0463 ==

== ENCOUNTER 2020-07-21 20:13 | Observation (INO) | payer MEDICARE ==
[~2020-07-21] VITALS: Ht 152.4 cm; Wt 100.2 kg
[~2020-07-21 20:13] MED LIST changes: +BENTYL 10MG10 MG/CAP PO; +LANTUS SOLOS100 U/ML SQ; +MYRBETR25MG PO
[2020-07-21 21:12] LABS: BASO % 0.3 % (0.0-2.0); EOS % 0.4 % (0-4.0); GRAN # 8.6 (1.4-6.5); GRAN % 83.9 % (42.2-75.2); HEMATOCRIT 37.9 % (37.0-47.0); HEMOGLOBIN 12.1 g/dl (12.5-16.0); LYMPH # 0.8 (1.2-3.4); LYMPH % 7.9 % (20.0-51.0); MEAN CELL VOLUME 96 fl (80.0-100.0); MEAN CORPUSCULAR HEMOGLOBIN 31 pg (27.0-31.0); MEAN CORPUSCULAR HGB CONC 32 g/dl (33.0-37.0); MEAN PLATELET VOLUME 9.8 fl (7.4-10.4); MONO # 0.7 (0.1-0.6); MONO % 7.1 % (1.7-9.3); PLATELET COUNT 161 K/mm3 (130-400); RED BLOOD COUNT 3.96 M/mm3 (4.10-5.30); REDCELL DISTRIBUTION WIDTH-CV 14.1 % (11.5-14.5)
[2020-07-21 21:23] LABS: ALCOHOL(ethanol),MEDICAL < 10 mg/dL
[2020-07-21 21:25] LABS: ARTERIAL BLD GAS O2 SATURATION 96.4 % (92-100); ARTERIAL BLOOD GAS PCO2 33.8 mmHg (35-45); ARTERIAL BLOOD GAS PO2 78.8 mmHg (80-100); ARTERIAL BLOOD GAS pH 7.49 (7.35-7.45)
[2020-07-21 21:35] LABS: LACTIC ACID 0.9 mmol/L (0.4-2.0)
[2020-07-21 21:40] LABS: ALANINE AMINOTRANSFERASE 7 U/L (4-34); ALBUMIN 4.6 gm/dL (3.5-5.0); ALKALINE PHOSPHATASE 95 U/L (50-136); ANION GAP 10 mmol/L (7-16); AST,SGOT 28 U/L (15-37); BILIRUBIN,TOTAL 0.6 mg/dL (0.0-1.0); BLOOD UREA NITROGEN 35 mg/dL (7-17); CARBON DIOXIDE 28 mmol/L (22-30); CHLORIDE 98 mmol/L (98-107); CREATININE, serum 1.33 (0.52-1.25); GLUCOSE 146 mg/dL (74-106); LIPASE 29 U/L (23-300); POTASSIUM 4.8 mmol/L (3.4-5.0); SODIUM 135 mmol/L (137-145); TOTAL PROTEIN 8.4 gm/dL (6.4-8.2)
[2020-07-21 22:30] LABS: COLLECTION METHOD CATHETER
[2020-07-21 22:48] LABS: MUCOUS Present /lpf; PH 6 (5-8); SQUAMOUS EPITHELIAL 0-2 /hpf; TRICYCLIC ANTIDEPRESS URINE NEGATIVE; URINE APPEARANCE Cloudy; URINE BACTERIA Rare /hpf; URINE BILIRUBIN Negative (NEGATIVE); URINE BLOOD 1+ (NEGATIVE); URINE COLOR Yellow; URINE GLUCOSE Negative (NEGATIVE); URINE KETONE Negative (NEGATIVE); URINE LEUKOCYTE ESTERASE 3+ (NEGATIVE); URINE NITRATE Negative (NEGATIVE); URINE PROTEIN(semi-quant) Negative (NEGATIVE); URINE UROBILINOGEN Negative (NEGATIVE); URINE WBC >50 /hpf
[2020-07-22] VITALS (13 sets, daily range): BP systolic 101–158; BP diastolic 52–77; PULSE 75–108; TEMP 97.7–99
--- NOTE | 2020-07-22 13:07 | NUR ---
First visit from the field marketer. No needs right now.
--- NOTE | 2020-07-22 18:00 | NUR ---
Patient has been doing well today. Denies pain and nausea. She is hoping to discharge tomorrow. Updated her about the patients condition. Patient denies any burning with urination. Patient has been incontinent of urine today. We changed her about 5 times today. No other changes at this time. Call light within reach. Bed alarm on.
--- NOTE | 2020-07-22 19:07 | NUR ---
Received report from Sridevi. Seen patient sitting in bed, eating her dinner. She is alert but not oriented. She denies pain. Bed alarm on. Call light within reach.
--- NOTE | 2020-07-22 20:45 | NUR ---
Patient has incontinent void. Changed her bed sheets, underpads and gown. Placed diaper. Repositioned patient. Bed alarm on.
--- NOTE | 2020-07-23 02:00 | NUR ---
Rounds done. Patient asleep. Not in distress. Bed alarm on.
[2020-07-23 04:14] VITALS: BP 148/76; PULSE 76; TEMP 97.4
--- NOTE | 2020-07-23 05:19 | NUR ---
Patient states mild pain on left side of abdomen. Pain score of 2-3/10. Changed patient's diaper. Bed alarm on.
[2020-07-23 07:50] VITALS: BP 137/73; PULSE 79; TEMP 97.9
[2020-07-23] MEDS ORDERED: OMNICEF 300MG300 MG PO (08:50)
--- NOTE | 2020-07-23 11:30 | NUR ---
Patient will be discharging home today. She wanted to wait and eat lunch. Spoke with her several times. He does not understand the instructions. Explained that she wants to eat lunch before leaving. Patient stated she is feeling a lot better and that she has more energy today. She was able to get up and walk to the bathroom. No other changes at this time. Call light within reach.
[2020-07-23 12:00] VITALS: BP 124/63; PULSE 85; TEMP 97.5
--- NOTE | 2020-07-23 15:15 | NUR ---
Discharge instructions reviewed with patient, verbalized understanding. Discharged via wheelchair to auto/home with spouse at 1515.
== END 2020-07-23 15:30 | disposition home or self-care (01) ==
LOC: COL.ER 20:13 → SURG 22:58
PROVIDERS: Emergency Medicine; ADMIT Internal Medicine
DX: N13.2 Hydronephrosis with renal and ureteral calculous obstruction (principal); N39.0 Urinary tract infection, site not specified; G20 Parkinson's disease; E11.9 Type 2 diabetes mellitus without complications; Z88.5 Allergy status to narcotic agent; Z88.8 Allergy status to other drugs, medicaments and biological substances; Z86.73 Personal history of transient ischemic attack (TIA), and cerebral infarction without residual deficits; F32.9 Major depressive disorder, single episode, unspecified; Z90.710 Acquired absence of both cervix and uterus; Z79.4 Long term (current) use of insulin; Z20.828 Contact with and (suspected) exposure to other viral communicable diseases
CPT/HCPCS: C1769; G0378; J0696; J1100; J1815; J1885; J2405; J2704; J7030; Q9967

== ENCOUNTER 2020-07-22 13:00 | Outpatient (RCR) | payer MEDICARE ==
[2020-07-23] MEDS ORDERED: OMNICEF 300MG300 MG PO (08:50)
== END 2020-07-27 | disposition home or self-care (01) ==
LOC: WSPT
DX: G20 Parkinson's disease (principal)

== ENCOUNTER → 2020-10-16 | Outpatient (CLI) | payer MEDICARE ==
[~2020-10-16] MED LIST changes: +B-121000 MCG PO; +GLUTOSE 1515 GM PO; +HUMALOG PEN100 U/ML SQ; +LEVEMIR100 U/ML SQ; +NOVOLOG 100U100 U/M1 SQ; +PREDNISONE20 MG PO; +ZITHROMAX 250M250 MG PO
== END ==
LOC: ZCOL.LAB 12:03
DX: R05 Cough (principal); R06.02 Shortness of breath; R60.0 Localized edema

== ENCOUNTER 2020-12-26 08:51 | Observation (INO) | payer MEDICARE ==
[~2020-12-26] VITALS: Ht 152.4 cm; Wt 99.1 kg
[~2020-12-26 08:51] MED LIST changes: -B-121000 MCG PO; -GLUTOSE 1515 GM PO; -HUMALOG PEN100 U/ML SQ; -LEVEMIR100 U/ML SQ; -NOVOLOG 100U100 U/M1 SQ; -PREDNISONE20 MG PO; -ZITHROMAX 250M250 MG PO
[2020-12-26 09:19] LABS: HEMATOCRIT 39.2 % (37.0-47.0); HEMOGLOBIN 12.4 g/dl (12.5-16.0); MEAN CELL VOLUME 96 fl (80.0-100.0); MEAN CORPUSCULAR HEMOGLOBIN 30 pg (27.0-31.0); MEAN CORPUSCULAR HGB CONC 32 g/dl (33.0-37.0); MEAN PLATELET VOLUME 9.9 fl (7.4-10.4); PLATELET COUNT 168 K/mm3 (130-400); RED BLOOD COUNT 4.08 M/mm3 (4.10-5.30)
[2020-12-26 09:26] LABS: ALBUMIN 4.3 gm/dL (3.5-5.0); BILIRUBIN,TOTAL 0.3 mg/dL (0.0-1.0); CALCIUM 10.3 mg/dL (8.4-10.2); CREATININE, serum 1.13 (0.52-1.25); TOTAL PROTEIN 8.1 gm/dL (6.4-8.2)
[2020-12-26 09:39] LABS: BAND 1 % (0-10); EOSINOPHIL 1 % (0-4); HYPOCHROMIA 2+; LYMPHOCYTE 8 % (20.0-51.0); NEUTROPHILS 83 % (42.0-75.2); NUCLEATED RED BLOOD CELL 1 (0-6); PLATELET ESTIMATE NORMAL (NORMAL)
[2020-12-26 09:46] LABS: COLLECTION METHOD CLEAN CATCH
[2020-12-26 09:53] LABS: MUCOUS Present /lpf; PH 6 (5-8); SQUAMOUS EPITHELIAL 0-2 /hpf; URINE APPEARANCE Hazy; URINE BACTERIA Rare /hpf; URINE BILIRUBIN Negative (NEGATIVE); URINE BLOOD 3+ (NEGATIVE); URINE COLOR Yellow; URINE GLUCOSE 3+ (NEGATIVE); URINE KETONE Negative (NEGATIVE); URINE LEUKOCYTE ESTERASE Trace (NEGATIVE); URINE NITRATE Negative (NEGATIVE); URINE PROTEIN(semi-quant) 2+ (NEGATIVE); URINE UROBILINOGEN Negative (NEGATIVE)
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
[2020-12-26] MEDS ORDERED: ZITHROMAX 250M250 MG PO (13:50)
[2020-12-26] MEDS ORDERED: PREDNISONE20 MG PO (13:54)
--- NOTE | 2020-12-26 14:29 | NUR ---
Patient to room 314 by wheelchair from the ED
[2020-12-26 15:08] LABS: COLLECTION METHOD CATHETER
[2020-12-26 15:16] LABS: MUCOUS Present /lpf; PH 6 (5-8); SQUAMOUS EPITHELIAL 0-2 /hpf; URINE APPEARANCE Hazy; URINE BACTERIA Occasional /hpf; URINE BILIRUBIN Negative (NEGATIVE); URINE BLOOD 1+ (NEGATIVE); URINE COLOR Yellow; URINE GLUCOSE 2+ (NEGATIVE); URINE KETONE Negative (NEGATIVE); URINE LEUKOCYTE ESTERASE Trace (NEGATIVE); URINE NITRATE Negative (NEGATIVE); URINE PROTEIN(semi-quant) 2+ (NEGATIVE); URINE RBC 0-2 /hpf; URINE UROBILINOGEN Negative (NEGATIVE)
[2020-12-26 16:28] VITALS: BP 127/58; PULSE 95; TEMP 97.5
--- NOTE | 2020-12-26 18:17 | NUR ---
Patient had an uneventful day, has been at the bedside since being on the floor. A&Ox3. VSS IV CDI. Denies pain and discomfort. No further needs expressed from the patient. Call light within reach
[2020-12-26 18:27] LABS: TRICYCLIC ANTIDEPRESS URINE NEGATIVE
[2020-12-26 19:46] VITALS: BP 98/49; PULSE 85; TEMP 98.6
[2020-12-26 23:38] VITALS: BP 114/50; PULSE 96; TEMP 98
--- NOTE | 2020-12-27 00:58 | NUR ---
PT TAKEN DOWN TO CT FOR HEAD SCAN THAT WAS CANCELLED BY RADIOLOGY PER EMERGENCY SERVICE RESTORER REQUEST/ORDER. PT NOW BACK IN BED.
[2020-12-27 04:38] VITALS: BP 124/51; PULSE 76
[2020-12-27 06:53] LABS: MEAN CELL VOLUME 98 fl (80.0-100.0); MEAN CORPUSCULAR HGB CONC 32 g/dl (33.0-37.0); MEAN PLATELET VOLUME 9.9 fl (7.4-10.4); PLATELET COUNT 166 K/mm3 (130-400); RED BLOOD COUNT 3.37 M/mm3 (4.10-5.30); REDCELL DISTRIBUTION WIDTH-CV 14.3 % (11.5-14.5)
[2020-12-27 07:15] LABS: HEMATOCRIT 32.9 % (37.0-47.0); HEMOGLOBIN 10.4 g/dl (12.5-16.0); MEAN CORPUSCULAR HEMOGLOBIN 31 pg (27.0-31.0)
[2020-12-27 07:19] LABS: CALCIUM 9.7 mg/dL (8.4-10.2); CREATININE, serum 1.09 (0.52-1.25); POTASSIUM 3.6 mmol/L (3.4-5.0)
[2020-12-27 07:35] VITALS: BP 118/52; PULSE 74; TEMP 98.5
--- NOTE | 2020-12-27 08:06 | NUR ---
Patient sitting up in bed TV on. A&Ox3. WBG 55, nurse gave the patient orange juice with added sugar. VSS. IV CDI. Denies pain and discomfort. Nurse ordered breakfast for the patient. Call light within reach. Bed alarm on
[2020-12-27 09:41] LABS: EOSINOPHIL 3 % (0-4); LYMPHOCYTE 23 % (20.0-51.0); NEUTROPHILS 67 % (42.0-75.2)
[2020-12-27 09:42] LABS: HYPOCHROMIA 2+; PLATELET ESTIMATE NORMAL (NORMAL)
[2020-12-27 11:07] VITALS: BP 113/60; PULSE 78; TEMP 98.2
[2020-12-27 16:17] VITALS: BP 125/89; PULSE 80; TEMP 98.1
--- NOTE | 2020-12-27 17:53 | NUR ---
Patient A&Ox3. Worked with PT and tolerated well, has been sitting in the recliner most of the day. has been at the bedside most of the shift. VSS. IV CDI, WBG WNL. Denies pain and discomfort. Call light within reach. Bed alarm on
[2020-12-27 20:00] VITALS: BP 120/61; PULSE 76; TEMP 98
[2020-12-28] VITALS: BP 126/58; PULSE 72; TEMP 98.2
[2020-12-28 04:00] VITALS: BP 115/58; PULSE 75; TEMP 98
--- NOTE | 2020-12-28 05:51 | NUR ---
PT RESTED QUIETLY/SLEPT MOST OF THE NIGHT. NO SIGNS/SYMPTOMS OF HYPO/HYPERGLYCEMIA. PT DENIED PAIN.
[2020-12-28 08:34] VITALS: BP 115/60; PULSE 81; TEMP 98
[2020-12-28 09:47] LABS: IRON,SERUM 57 ug/dL (35-150)
[2020-12-28 09:56] LABS: TOTAL IRON BINDING CAPACITY 323 ug/dL (265-497)
[2020-12-28 10:48] LABS: BASO % 0.7 % (0.0-2.0); EOS # 0.3 (0.0-0.7); EOS % 4.5 % (0-4.0); GRAN # 4.1 (1.4-6.5); GRAN % 73.7 % (42.2-75.2); HEMATOCRIT 38.1 % (37.0-47.0); HEMOGLOBIN 11.8 g/dl (12.5-16.0); LYMPH # 0.7 (1.2-3.4); LYMPH % 12.2 % (20.0-51.0); MEAN CELL VOLUME 98 fl (80.0-100.0); MEAN CORPUSCULAR HEMOGLOBIN 30 pg (27.0-31.0); MEAN CORPUSCULAR HGB CONC 31 g/dl (33.0-37.0); MEAN PLATELET VOLUME 9.5 fl (7.4-10.4); MONO # 0.4 (0.1-0.6); PLATELET COUNT 181 K/mm3 (130-400); RED BLOOD COUNT 3.89 M/mm3 (4.10-5.30); REDCELL DISTRIBUTION WIDTH-CV 14.4 % (11.5-14.5)
[2020-12-28 11:06] LABS: CALCIUM 9.8 mg/dL (8.4-10.2); CREATININE, serum 1.16 (0.52-1.25); POTASSIUM 4.5 mmol/L (3.4-5.0)
[2020-12-28 11:23] VITALS: BP 151/70; PULSE 83; TEMP 97.6
[2020-12-28 11:36] LABS: TSH w REFLEX 5.74 uIU/mL (0.465-4.680)
--- NOTE | 2020-12-28 13:12 | NUR ---
Assessment completed, alert/oriented but forgetful, denies pain, vital signs stable, now having some hypoglycemic issues/ notified hospitlaist and jacobo making insulin dosing changes, present in the room and states " he doesnt understand why we dont just give her the meds she takes at home", patient will have braing MRI today for intermittent confusion, social work following case as some concerns were brought up by family of patients well being at home, she is comfortable and denies other needs at his time
[2020-12-28 15:41] VITALS: BP 123/63; PULSE 91; TEMP 98.4
--- NOTE | 2020-12-28 16:27 | NUR ---
Date Night Caregiver and IONA Xiong-CM with [facility] met with patient and her , Santhosh to discuss discharge planning. SW advised patient that the recommendation is for placement and at this time, home would not be a safe option for her due to frequent falls and reoccurrent EMS visits. CONG advised that referrals would be send to local alf and nursing homes in the surrounding communities. Santhosh expressed concerns about funding for alf and SW advised that Financial Counseling would be consulted and patient would have to be placed Medicaid pending as she is observation status. Santhosh became upset during this discussion and stated that he and patient are and SW cannot force him or patient to do anything. Santhosh again states they are and need to live together. Santhosh does not want to live alone. CONG and Inga provided emotional support and advised although this is a very difficult situation, patient needed a discharge plan that was safe. Santhosh is still not happy about placement and advised that he is patient's DPOA-HC and does not feel we can force them to do anything. Patient states to Santhosh, they may not have a choice if this is what she needs to do. After meeting, CONG faxed referrals to [facility], [facility], [facility], [place], [facility], [facility], [facility], [facility], [facility], [facility], and [facility]. SW consulted Financial Counseling. SW contacted [facility], who provides in home services to patient. CONG was advised patient does not have Medicaid, her services are funded through a rex from the [facility] on A[facility]. CONG contacted CONG Nolan at [facility] who advised patient's reports screened in and she will visit tomorrow. SW attempted to contact patient's daughter, Queta twice however there was an automated message stating "call rejected". Discharge Plan: Awaiting Screens from above facilities. [facility] and [facility] have declined referral. [facility] and rehab could tentatively accept once Medicaid is applied for. Patient will discharge Medicaid pending once application is submitted and there is an accepting facility.
[2020-12-28 20:19] VITALS: BP 132/52; PULSE 88; TEMP 98.6
--- NOTE | 2020-12-28 23:05 | NUR ---
Shift assessment completed. Patient alert and oriented. Patient denies any pain or discomfort. Denies SOB, N/V, headache, or dizziness. Purewick in place and draining clear yellow urine. All scheduled meds given per MAR. Patient requests some crackers and milk. Offered some crackers and milk per patient request. Call light within reach. Patient denies further needs at this time.
[2020-12-29] VITALS (9 sets, daily range): BP systolic 111–137; BP diastolic 41–78; PULSE 78–109; TEMP 97.7–98.5
[2020-12-29 07:14] LABS: BASO % 0.7 % (0.0-2.0); EOS # 0.2 (0.0-0.7); EOS % 5.1 % (0-4.0); GRAN % 66.1 % (42.2-75.2); HEMATOCRIT 38.4 % (37.0-47.0); LYMPH # 0.8 (1.2-3.4); LYMPH % 17.7 % (20.0-51.0); MEAN CELL VOLUME 98 fl (80.0-100.0); MEAN CORPUSCULAR HEMOGLOBIN 31 pg (27.0-31.0); MEAN CORPUSCULAR HGB CONC 31 g/dl (33.0-37.0); MONO # 0.4 (0.1-0.6); MONO % 9.3 % (1.7-9.3); PLATELET COUNT 170 K/mm3 (130-400); RED BLOOD COUNT 3.93 M/mm3 (4.10-5.30); REDCELL DISTRIBUTION WIDTH-CV 14.2 % (11.5-14.5)
[2020-12-29 07:27] LABS: CALCIUM 9.8 mg/dL (8.4-10.2); CREATININE, serum 1.1 (0.52-1.25); POTASSIUM 4.4 mmol/L (3.4-5.0)
--- NOTE | 2020-12-29 10:08 | NUR ---
PT UP TO RECLINER WITH THEARPY. AT BEDSIDE. PT AMBULATED FROM BED TO BR AND THEN TO RECLINER. PT TOLERATE WELL. PLAN ON TRANSFER TO SNF LATER.
--- NOTE | 2020-12-29 15:00 | NUR ---
In Home Baby Sitter collaborated with CECILE Nolan who met with patient and Santhosh this morning. Anahi advised patient and Santhosh are more agreeable to placement today. CONG collaborated with Analy, Financial Counselor who advised she made contact with patient and Santhosh. CONG spoke with Thomas at [facility] who advised they can accept Medicaid pending. CONG met with patient and Santhosh and asked Santhosh to bring in bank statements, per Analy's request so Medicaid Application can be submitted. Santhosh states he will go to the bank today and bring them in tomorrow. CONG advised patient and Santhosh that [facility] can accept and patient would prefer to stay local if possible. Discharge Plan: Acceptance from [facility] and [facility], pending Medicaid application.
--- NOTE | 2020-12-29 21:35 | NUR ---
Patient sitting in the chair upon shift start. Dinner tray on the table by the chair. Assisted patient to reposition in the chair to sit upright. Patient start to eat dinner. Encouraged patient to use call light if she needs anything. Patient verbalized understanding. Call light within reach. Patient found to lay on the floor around 1930. Checked VS. VS stable. BS within normal range. No visible skin breakdown, brusies, or bleeding noted. Patient denies hurt her head. Patient A/O x3. Patient states that she tried to get up to go to bathroom and she fell. Neuro check done and WNL. IONA Kennedy assessed patient and called KOLTON Beckford to update. KOLTON Beckford ordered head CT. Patient down to head CT at this time. Called patient's spouse at 21:30 pm but not answering phone call. continue to monitor.
[2020-12-30] VITALS (8 sets, daily range): BP systolic 84–142; BP diastolic 47–73; PULSE 76–87; TEMP 97.4–98.6
--- NOTE | 2020-12-30 06:17 | NUR ---
Patient slept well throughout the night. No c/o pain or discomfort. VS stable. No acute distress noted. Call light within reach. Bed alarms on. Fall precaution maintained.
[2020-12-30 06:58] LABS: BASO % 0.8 % (0.0-2.0); EOS # 0.2 (0.0-0.7); EOS % 4.3 % (0-4.0); GRAN # 2.6 (1.4-6.5); GRAN % 65.3 % (42.2-75.2); HEMOGLOBIN 11.1 g/dl (12.5-16.0); LYMPH # 0.8 (1.2-3.4); LYMPH % 19.3 % (20.0-51.0); MEAN CELL VOLUME 97 fl (80.0-100.0); MEAN CORPUSCULAR HEMOGLOBIN 30 pg (27.0-31.0); MEAN CORPUSCULAR HGB CONC 31 g/dl (33.0-37.0); MEAN PLATELET VOLUME 9.8 fl (7.4-10.4); MONO # 0.4 (0.1-0.6); MONO % 9.5 % (1.7-9.3); PLATELET COUNT 159 K/mm3 (130-400); REDCELL DISTRIBUTION WIDTH-CV 14.1 % (11.5-14.5)
[2020-12-30 07:01] LABS: HEMATOCRIT 35.7 % (37.0-47.0)
[2020-12-30 07:21] LABS: CALCIUM 9.5 mg/dL (8.4-10.2); CREATININE, serum 1.29 (0.52-1.25); POTASSIUM 4.2 mmol/L (3.4-5.0)
--- NOTE | 2020-12-30 11:06 | NUR ---
PT ASSESSMENT COMPELTED, SEE NOTE. PT CURRENTLY SITTING UP TO CHAIR, ASSISTED TO CHAIR BY PT, EATING BREAKFAST AND TOLERATING WELL. NO COMPLAINTS OF PAIN OR DISCOMFORT, NO DIFFICULTY BREATHING. PT DOES NOT REPORT ANY EVENTS OVERNIGHT OUTSIDE OF REPORTED FALL. PT EDUCATION PROVIDED ON FALL PREVENTINO AND PT VERBALIZED UNDERSTANDING. PT STATES SHE IS OK SITTING UP IN CHAIR FOR NOW. PUREWICK IN PLACE, CALL NATH IN REACH.
--- NOTE | 2020-12-30 12:13 | NUR ---
PT ASSISTED UP TO BEDSIDE COMMODE. PT ABLE TO TURN AND PIVOT X1 ASSIST. BACK TO CHAIR WITH CHAIR ALARM SET AND CALL NATH IN REACH.
--- NOTE | 2020-12-30 14:02 | NUR ---
PT UP WORKING WITH PHYISCAL THERAPY AT THIS TIME. AMBULATING WITH WALKER IN HALLWAY.
--- NOTE | 2020-12-30 16:09 | NUR ---
Betzaida (ph#[phone]), social worker psychiatric at [facility]), reports that they would be willing to accept the patient and could pick her at 1230 on Monday. CONG notified the clinical team. CONG met with the patient and her to update and to inquire about the bank statements. Her reports that he did not get a chance to go to the bank today. CONG educated them on the importance of providing the bank statements to complete the Medicaid application and and how [facility] requires the completed application. CONG informed them that if the application is not completed, then [facility] could accept, and the clinical team would be looking at sending her there for SNF. The patient and her verbalized understanding. Her reports that he will try and get to the bank tomorrow morning for the statements.
--- NOTE | 2020-12-30 17:16 | NUR ---
pt's taking home pt medications brought up from pharmacy, pt also taking home pt's purse.
--- NOTE | 2020-12-30 17:53 | NUR ---
Pt complaining of lower abdominal pain however declines medication modalities at this time. States its gas pain and requesting sprite/tyrone donaldo at this time. at bedside insistent that pt needs medications. Pt education provided on medication modalities and to call if she changes her mind ref medication.
--- NOTE | 2020-12-30 20:45 | NUR ---
Initial shift assessment done- sitting up in recliner- confused as to place and time--thinks she[place]- states shes looking for her -- Up to BSC with 2 assists, very insteady- back to bed after used BSC-- did put purewick on patient once back to bed- did try to call daughter who had called earlier and wanted to talk to her mom-- no answer at this time. Tele on. Bed alarm on-
[2020-12-31] VITALS (9 sets, daily range): BP systolic 111–138; BP diastolic 47–67; PULSE 80–89; TEMP 97.5–98.6
--- NOTE | 2020-12-31 05:04 | NUR ---
Quiet night-- has been sleeping well most of the night-- purewick external catheter working well--VSS
[2020-12-31 07:00] LABS: CALCIUM 9.3 mg/dL (8.4-10.2); CREATININE, serum 1.42 (0.52-1.25); POTASSIUM 4.1 mmol/L (3.4-5.0)
--- NOTE | 2020-12-31 10:15 | NUR ---
Assessment completed, see additional note. Pt resting in bed at this time. Alert and oriented to person and place with frequent confusion. currently at bedside, has a very anxious and overbearing demeanor in that he frequently demands have specific medications or additional medications. does not appear fearful however does not allow patient to speak for herself frequently. Pt has no complaints of pain or discomfort. Breathing is even and unlaobred. Scattered bruising to abdomen likely r/t insulin/anticoag injections. Pt is weak, can stand/turn/pivot with assist. Brief and purewick in place, pt tolerating well. Bed alarm set, call fragoso in reach, bed in low position. Fluids provided to both patient and per husbands request.
--- NOTE | 2020-12-31 16:34 | NUR ---
Business Solutions Analyst spoke with IONA Barros at [facility] who advised they cannot meet patient's needs. CONG met with patient and her , Santhosh along with CECILE Christian Business Solutions Analyst. CONG advised that [facility] is able to accept tomorrow medicaid pending. Patient and Santhosh are agreeable with discharge tomorrow to [facility]. Santhosh contacted patient's daughter, Queta (ph#[phone]) and had her on speakerphone. CONG informed Queta of the discharge plan, tomorrow to [facility]. Santhosh provided CONG with amounts for patient's bank accounts. CONG provided this information to Analy, Financial Counselor who submitted Medicaid application. CONG obtained patient's signature on releases and signature page and then provided them to Analy. APS CONG, Anahi obtained release from patient so she could obtain bank statements. CONG completed a CARE assessment for patient. CONG provided copy of CARE to patient, [facility], and [facility]. CONG also placed copy on chart. CONG contacted IONA Xiong-CM from [facility] to provide update. Inga to meet with patient again tomorrow before discharge. CONG contacted Betzaida at [facility] and tentative transport time was set for 1230. Discharge Plan: [facility].
--- NOTE | 2020-12-31 17:02 | NUR ---
REASSESSMENT COMPLETED WITH NO CHANGE TO INTIAL ASSESSMENT. PT ASSISTED TO REPOSITION IN CHAIR, CHAIR ALARM REMAINS SET, AT BEDSIDE. PT HAS EATEN ALL MEALS AND TOELRATES WELL. CALL NATH IN REACH.
--- NOTE | 2020-12-31 18:21 | NUR ---
PT REMAINS UP TO CHAIR, DOES NOT WISH TO GO BACK TO BED AT THIS TIME. BRIEF CLEAN/DRY. CHAIR ALARM SET, CALL NATH IN REACH.
[2021-01-01 00:31] VITALS: BP 118/72; PULSE 78; TEMP 97.3
[2021-01-01 04:00] VITALS: BP 108/51; PULSE 78; TEMP 97.8
[2021-01-01 04:46] VITALS: BP 123/50; PULSE 110; TEMP 97.6
[2021-01-01 06:51] LABS: CALCIUM 9.6 mg/dL (8.4-10.2); CREATININE, serum 1.12 (0.52-1.25); POTASSIUM 4.3 mmol/L (3.4-5.0)
[2021-01-01 08:13] VITALS: BP 130/81; PULSE 80; TEMP 97.5
[2021-01-01] MEDS ORDERED: B-121000 MCG PO (08:47)
[2021-01-01] MEDS ORDERED: SINEMET 25/101 UDTAB PO ×3 (08:50→08:51)
[2021-01-01] MEDS ORDERED: LEVEMIR100 U/ML SQ (08:53)
[2021-01-01] MEDS ORDERED: GLUTOSE 1515 GM PO (08:54)
[2021-01-01] MEDS ORDERED: NOVOLOG 100U100 U/M1 SQ (08:54)
--- NOTE | 2021-01-01 09:45 | NUR ---
PT PLEASANT, AOX4, WEARING GLASSES, UP TO CHAIR EATING BREAKFAST, MEDICATIONS GIVEN, INSULIN GIVEN, EDUCATED ON PURPOSE OF MEDICATIONS, ASSESSMENT PERFORMED, CALL LIGHT WITHIN REACH, CAME INTO ROOM TOWARDS END OF MEDICATION ADMINISTRATION. INFORMED OF LEAVING TIME OF 1230. NO OTHER NEEDS.
[2021-01-01 11:38] VITALS: BP 123/83; PULSE 78; TEMP 98.2
[2021-01-01 11:51] VITALS: BP 123/83; PULSE 78; TEMP 98.2
--- NOTE | 2021-01-01 12:38 | NUR ---
IV IN RAC REMOVED, PT TRANSFERRED TO WHEELCHAIR FOR DISCHARGE, DISCHARGE PACKET GIVEN TO PT'S RIDE, REPORT CALLED TO IONA HOUSE. NO OTHER NEEDS AT THIS TIME.
--- NOTE | 2021-01-01 12:51 | NUR ---
[employer] Technician attended clinical rounds with the team and patient to discharge to [facility] today at 1230. CONG provided transport time to patient and her , Santhosh. CONG faxed discharge orders, copy of Medicaid application, and copy of Medicare card to Betzaida at [place]. CONG met with patient and her daughter, Queta who is here from [place] at bedside. Queta inquired about what the process is to update patient's DPOA-HC. CONG advised patient that it was her decision who she appoints as DPOA-HC. Patient verbalized understanding of DPOA-HC and stated to CONG and Rosemarie MONSON that DPOA-HC means that someone can make decisions for her if she can't. Patient states to CONG and Rosemarie MONSON that she wants to appoint both her daughter, Queta and , Santhosh. CONG assisted patient in completing the form and CONG and Rosemarie MONSON provided witness signature. CONG provided original and copies to patient, then placed copy in patient's chart. CONG provided copy to Betzaida at [place]. CONG contacted IONA Xiong-CM at [facility] to provide update. CONG also updated CONG Christian at [facility]. Discharge Plan: [facility], Medicaid pending, 01/01/21
[2021-03-12] MEDS ORDERED: SINEMET 25/101 UDTAB PO ×3 (11:21→11:22)
[2021-03-12] MEDS ORDERED: B-121000 MCG PO (11:26)
[2021-03-12] MEDS ORDERED: BENTYL 10MG10 MG/CAP PO (11:26)
[2021-03-12] MEDS ORDERED: HUMALOG PEN100 U/ML SQ (11:27)
[2021-03-12] MEDS ORDERED: NORCO 325 MG-51 TAB PO (11:28)
[2021-03-12] MEDS ORDERED: LEVEMIR FLEX100 U/ML SQ (11:28)
[2021-03-12] MEDS ORDERED: MYRBETR25MG PO (11:29)
[2021-03-12] MEDS ORDERED: ZOLOFT 100MG100 MG PO (11:30)
[2021-03-12] MEDS ORDERED: ZOCOR 40MG40 MG PO (11:30)
== END 2021-01-01 12:30 ==
LOC: COL.ER 08:51 → MEDICAL 12:04
PROVIDERS: Personal Emergency Response Attendant; Physician Assistant; ADMIT Internal Medicine
DX: E11.65 Type 2 diabetes mellitus with hyperglycemia (principal); E11.649 Type 2 diabetes mellitus with hypoglycemia without coma; E11.22 Type 2 diabetes mellitus with diabetic chronic kidney disease; I12.9 Hypertensive chronic kidney disease with stage 1 through stage 4 chronic kidney disease, or unspecified chronic kidney disease; N18.30 Chronic kidney disease, stage 3 unspecified; D63.1 Anemia in chronic kidney disease; G20 Parkinson's disease; G91.8 Other hydrocephalus; D72.819 Decreased white blood cell count, unspecified; F32.9 Major depressive disorder, single episode, unspecified; E78.5 Hyperlipidemia, unspecified; E02 Subclinical iodine-deficiency hypothyroidism; R53.81 Other malaise; R62.7 Adult failure to thrive; J06.9 Acute upper respiratory infection, unspecified; N39.0 Urinary tract infection, site not specified; I51.7 Cardiomegaly; G31.9 Degenerative disease of nervous system, unspecified; W06.XXXA Fall from bed, initial encounter; Y93.9 Activity, unspecified; Z91.81 History of falling; Y92.230 Patient room in hospital as the place of occurrence of the external cause; Z79.4 Long term (current) use of insulin; Z85.118 Personal history of other malignant neoplasm of bronchus and lung; Z79.899 Other long term (current) drug therapy; Z63.79 Other stressful life events affecting family and household; Z85.048 Personal history of other malignant neoplasm of rectum, rectosigmoid junction, and anus; Z92.21 Personal history of antineoplastic chemotherapy; Z92.3 Personal history of irradiation; Z86.73 Personal history of transient ischemic attack (TIA), and cerebral infarction without residual deficits
CPT/HCPCS: 99223-AI; 99232-AI; A9585; G0378; J1650; J1815; J7030; J7040

== ENCOUNTER → 2021-03-16 | Outpatient (CLI) | payer MEDICARE ==
[2021-03-16] VITALS (8 sets, daily range): BP systolic 119–143; BP diastolic 58–82; PULSE 68–82; TEMP 98.3
[~2021-03-16] VITALS: Ht 152.4 cm; Wt 99.8 kg
[~2021-03-16] MED LIST changes: +B-121000 MCG PO; +GLUTOSE 1515 GM PO; +HUMALOG PEN100 U/ML SQ; +LEVEMIR100 U/ML SQ; +NOVOLOG 100U100 U/M1 SQ; +PREDNISONE20 MG PO; +ZITHROMAX 250M250 MG PO
--- NOTE | 2021-03-16 10:00 | NUR ---
Report from Judith MONSON. Denies pain and needs at this time. VSS. Laying flat and resting quietly
--- NOTE | 2021-03-16 10:00 | NUR ---
Report to Joselin MONSON, care assumed. Informed pt will be scanned in two hours. Bandaid to back clean dry and intact. Denies pain at this time.
== END ==
LOC: COL.RAD 08:14
DX: G91.2 (Idiopathic) normal pressure hydrocephalus (principal)
CPT/HCPCS: A9548